=== PATIENT | female | born 1985 | race Caucasian/White ===

== ENCOUNTER 2020-10-26 20:36 | Emergency (ER) | payer SELFPAY ==
[~2020-10-26] VITALS: Ht 170.2 cm; Wt 90.6 kg
[2020-10-26 20:43] VITALS: BP 126/79
--- NOTE | 2020-10-26 20:44 | ED Lower Extremity ---
General Chief Complaint: Lower Extremity Stated Complaint: RIGHT LEG PAIN History of Present Illness Date Seen by Provider: Oct 26, 2020 Time Seen by Provider: 20:44 Initial Comments 35-year-old female presents with an erythematous type rash on the posterior lateral aspect of her right knee on the backside. Patient is 34 weeks . They are concerned about a possible blood clot. They do report that she has been getting some dry red areas of a rash significant in mood about during her . She has no posterior calf pain. She has no pain with deep palpation or with walking. She has no other systemic complaints. Allergies and Home Medications Patient Home Medication List Home Medication List Reviewed: Yes Review of Systems Constitutional: No chills, No fever EENTM: no symptoms reported Gastrointestinal: see HPI : Yes Musculoskeletal: no symptoms reported Skin: see HPI Psychiatric/Neurological: No Symptoms Reported Past Quzlayl-Mtpvfi-Vxkyxe Hx Past Med/Social Hx: Reviewed Nursing Past Med/Soc Hx Physical Exam Vital Signs Capillary Refill : Height, Weight, BMI Height: '" Weight: lbs. oz. kg; BMI Method: General Appearance: WD/WN HEENT: PERRL/EOMI Cardiovascular: normal peripheral pulses, regular rate, rhythm Respiratory: no respiratory distress, no accessory muscle use Gastrointestinal: other (Gravid appearance) Legs: bilateral leg non-tender Knees: right knee other (Mild erythema and dry skin consistent with what appe ars to be a rash on the lateral posterior aspect. No popliteal fossa tenderness no posterior calf tenderness on palpation) Ankles: bilateral ankle non-tender Feet: bilateral foot non-tender Neurologic/Tendon: normal sensation, normal motor functions, normal tendon functions Skin: other (Mild erythematous dry patch) Progress/Results/Core Measures Progress Progress Note : Progress Note Discussed with patient that it does not appear to be a blood clot however due to her state and the location only way to have definitive answer is for ultrasound. Discussed with them that we do not have ultrasound available at night but the for suspected blood clots we start them on a Lovenox shot and arrange for ultrasound tomorrow morning. Patient and her are not comfortable with the Lovenox shot. I did perform a bedside DVT exam that did not have any noticeable clot burden, tell them that this is just a quick bedside exam and is not a definitive examination still need a definitive exam. They were once again offered a shot but still are not comfortable with it. They will follow up with her primary care provider tomorrow for an ultrasound. The erythematous spot on her posterior knee looks more like a rash/dry skin area. Recommended a good lotion and a low-dose topical [id number] steroid cream. I stressed multiple times and need to follow-up for a ultrasound for definitive due to her state. They will be discharged home as requested Departure Impression Primary Impression: Rash Disposition: 01 HOME, SELF-CARE Condition: Stable Departure-Patient Inst. Referrals: ORTEGA BARTON DO (PCP/Family) Primary Care Physician Patient Instructions: Skin Rash ED, Topical Corticosteroid Medicines Add. Discharge Instructions: A good lotion such as Eucerin or Aveeno Over the counter topical steroid such as hydrocortisone Follow-up with your primary care tomorrow for a ultrasound for definitive exam All discharge instructions reviewed with patient and/or family. Voiced understanding. PAMELA NAIDU DO Oct 26, 2020 20:44
== END 2020-10-26 21:08 | disposition home or self-care (01) ==
LOC: ER FS 20:42
DX: O99.713 Diseases of the skin and subcutaneous tissue complicating pregnancy, third trimester (principal); R21 Rash and other nonspecific skin eruption; Z3A.34 34 weeks gestation of pregnancy
CPT/HCPCS: 99283